=== PATIENT | female | born 1985 | race Caucasian/White ===

== ENCOUNTER 2025-04-28 15:13 | Emergency (ER) | payer SELFPAY ==
[2025-04-28 15:18] VITALS: BP 137/82; PULSE 83; RESP 18; TEMP 37; O2SAT 95
--- NOTE | 2025-04-28 15:45 | DI.RAD_ITS ---
Exam(s) XR CHEST 2V PA LATERAL EXAM: XR CHEST 2V PA LATERAL CLINICAL HISTORY: Productive cough TECHNIQUE: 2D digital imaging was performed. Two views. COMPARISON: No exams were available for comparison FINDINGS: HEART: Normal size. Aorta: Not dilated. PULMONARY VASCULATURE: Normal. MEDIASTINUM: Unremarkable. LUNGS: Clear. PLEURAL SPACE: No pleural effusion or pneumothorax. BONE:Unremarkable for age. SOFT TISSUES: Unremarkable. IMPRESSION: No acute abnormality. DATA REPOSITORY: RADIATION DOSE DELIVERED:
--- NOTE | 2025-04-28 15:58 | ED.GENADUL_ITS ---
Discharge Plan Disposition Patient Disposition: Home Condition: Stable Discharge Details Clinical Impression: Pneumonia, Asthma exacerbation Primary Care Provider: Lani,Local ED Provider: Edilia Velasquez Home Meds and New Rx's Prescriptions: New doxycycline hyclate 100 mg tablet 100 mg PO BID 10 Days Qty: 20 0RF Rx Instructions: Take 1 tablet by mouth twice daily for the next 10 days Continued prednisone 50 mg tablet 50 mg PO DAILY albuterol sulfate 90 mcg/actuation aerosol powdr breath activated 2 inh inhalation Q4H Discharge Instructions Instructions: Avoiding asthma triggers, Asthma, Adult ED, Pneumonia, Adult ED, How to Use a Metered Dose Inhaler ED Additional Instructions: Please continue to use the albuterol inhaler 1 or 2 puffs with spacer every 4-6 hours as needed. Take the antibiotic twice daily as prescribed with yogurt or probiotic. You were given 3 nebulizers here. Please continue take the prednisone as previously prescribed. Follow up with primary care provider in 3-5 days. Return to ED sooner if any worsening or concerns. Please take Tylenol or Ibuprofen with food every 4-6 hours as needed for pain and swelling. Discharge Data Discharge Date/Time-TO BE ENTERED AT DEPARTURE: 04/28/25 20:13 HPI General Mode of arrival: ambulatory . Date/Time Provider Initiated Documentation: 04/28/25 15:17 . Limitations to Documentation: no limitations . Information obtained by: patient and RN notes reviewed . HPI Narrative: 40-year-old female presents to the ER with approximately 2 weeks of worsening shortness of breath, productive cough, congestion. She was seen in an ER in [place] approximately 3 days ago and was given prednisone and a 7-day prednisone treatment of 50 mg a day. She is on her third day 50 mg of prednisone. She has also been using her hand held in an albuterol inhaler every 30 minutes. Related Data Home Medications ?Medication ?Instructions ?Recorded ?Confirmed albuterol sulfate 90 mcg/actuation 2 inh inhalation Q4 H 04/28/25 04/28/25 breath activated powder inhaler prednisone 50 mg tablet 50 mg PO DAILY 04/28/2504/10 doxycycline hyclate 100 mg tablet 100 mg PO BID URI 10 days #20 tabs 04/29/25 Previous Rx's ?Medication ?Instructions ?Recorded doxycycline hyclate 100 mg tablet 100 mg PO BID URI 10 days #20 tabs 04/29/25 Allergies Allergy/AdvReac Type Severity Reaction Status Date / Time No Known Allergies Allergy Unverified 04/28/25 15:20 General Stated Complaint: RespSymp YANA: 3 Review of Systems All systems reviewed & are unremarkable except as noted in HPI and below Constitutional Constitutional: Reports as per HPI, Denies body ache(s), Denies chills and Denies fever(s) Cardiovascular Cardiovascular: Denies chest pain and Reports dyspnea on exertion Respiratory Respiratory: Reports as per HPI, Reports chest congestion, Reports cough, Denies hemoptysis, Reports dyspnea on exertion and Reports wheezing Gastrointestinal Gastrointestinal: Denies abdominal pain, Denies nausea and Denies vomiting Allergic/Immunologic Allergic/Immunologic: Reports wheezing Exam Narrative Exam Narrative: Constitutional: Alert and oriented x3. Appears stated age. Normal body habitus. Head: Normocephalic, no trauma. Eyes: Pupils PERRL, Red reflex noted, EOM's intact. Eyelids symmetrical without lesions, discharge, or swelling. ENT: Bilateral TM's WNL, External ear normal to inspection, no mastoid TTP, swelling, or erythema, Nasal turbinates boggy, no nasal discharge. Normal dentition, Posterior pharynx WNL, no exudate. Chest: RRR, Normal S1, S2, distal pulses intact. Resp: Bilateral upper lobe expiratory wheezes, Rales and rhonchi noted to her legs bilaterally. No stridor. No increased work of breathing no tachypnea. Abdomen: Soft, non-distended, Normoactive bowel sounds all 4 quads. Musculoskeletal: Normal gait, Moves all 4 extremities without difficulty. Skin: Small scab noted to the bridge of her nose. Capillary refill less than 2 sec. Neurologic: Cranial nerves II-XII intact. Alert and oriented x 3. Motor: No deficits noted. Sensory: Intact bilaterally all 4 extremities. Hematologic/Lymphatic: No ecchymosis, no lymphadenopathy. Resp Effort & Inspection: normal respiratory effort and able to speak in complete sentences Auscultation: rales, rhonchi and wheezes Course Vital Signs Vital signs: Vital Signs Temperature 37.0 C 04/28/25 15:18 Pulse 83 04/28/25 15:18 Respiratory Rate 18 04/28/25 15:18 Blood Pressure 137/82 04/28/25 15:18 Pulse Oximetry 95 04/28/25 15:18 Temperature 37.0 C 04/28/25 15:18 Temperature Source Oral 04/28/25 15:18 Pulse 83 04/28/25 15:18 Respiratory Rate 18 04/28/25 15:18 Respiratory Effort Normal, Non-Labored, Short of Breath 04/28/25 15:23 Respiratory Depth Normal 04/28/25 15:23 Blood Pressure 137/82 04/28/25 15:18 Blood Pressure Position Sitting 04/28/25 15:18 Pulse Oximetry 95 04/28/25 15:18 Oxygen Delivery Method Room Air 04/28/25 15:18 Oxygen Flow Rate 0 04/28/25 15:18 Medical Decision Making 40-year-old female presents to the ER with approximately 2 weeks of worsening shortness of breath, productive cough, congestion. She was seen in an ER in [place] approximately 3 days ago and was given prednisone and a 7-day prednisone treatment of 50 mg a day. She is on her third day 50 mg of prednisone. She has also been using her hand held in an albuterol inhaler every 30 minutes. She is speaking in full sentences, she does have bilateral expiratory wheezes and rhonchi noted on auscultation. She denies any drugs or alcohol she does endorse vaping and smoking half a cigarette couple of days ago. Chest x-ray shows no acute abnormality. 1719: Will give a DuoNeb and reassess. Negative COVID flu RSV. 1742: Patient has received 1 DuoNeb on reevaluation lung sounds somewhat clear however there is still bilateral expiratory wheezes and rhonchi worse on the right. I do suspect pneumonia. Workup ordered including CBC CMP D-dimer and VBG I discussed plan of care with patient and she verbalized understanding and is in agreement with the plan. She states that she has recently traveled from [place] with the [employer] and everyone has the [employer] flu. She denies any possibility of however she is not on any control currently. 1852: On reassessment bilateral rhonchi, expiratory wheezes, will give additional DuoNeb and doxycycline. Patient had a total of 3 DuoNebs doxycycline given here tablets to go. Discussed home care, strict return instructions and follow-up care. Prescri ption for doxycycline twice daily x 10 days. Patient remained hemodynamically stable, given a spacer ANO x 4 upon discharge. This text was generated using [employer] system, please disregard any oddities of phrase or misspellings. Lab Data Lab results reviewed: Yes I reviewed the patient's lab results. Labs: Laboratory Tests Range/Units 04/28/25 04/28/25 16:08 17:45 WBC (4.4-10.8) 10^3/uL 9.14 RBC (3.93-5.22) 10^6/uL 3.78 L Hgb (11.2-15.7) g/dL 11.2 Hct (36.0-46.0) % 33.9 L MCV (80-95) fL 90 MCH (27.0-33.0) pg 29.6 MCHC (32.0-36.0) % 33.0 RDW (11.7-14.6) % 14.1 Plt Count (130-400) 10^3/uL 286 MPV (8.0-11.0) fL 9.5 Immature Gran % % 0.5 Neutrophils % % 68.5 Lymphocytes % % 23.2 Monocytes % % 7.4 Eosinophils % % 0.3 Basophils % % 0.1 Nucleated RBC % (0.0-0.3) % 0.0 Absolute Neutrophils (1.2-6.7) 10^3/uL 6.25 Absolute Lymphocytes (1.2-3.4) 10^3/uL 2.12 Absolute Monocytes (0.1-0.8) 10^3/uL 0.68 Absolute Eosinophils (0.0-0.7) 10^3/uL 0.03 Absolute Basophils (0.0-0.2) 10^3/uL 0.01 D-Dimer (<500) ng/mlFEU 120 VBG pH (7.31-7.41) 7.44 H VBG pCO2 (41-51) mmHg 41 VBG pO2 mmHg 55 VBG HCO3 (23-28) mmol/L 28 VBG Total CO2 (24-29) mmol/L 25 VBG O2 Saturation % 90 VBG Base Excess (-2-3) mmol/L 3 Sodium (136-145) mmol/L 140 Potassium (3.5-5.1) mmol/L 3.6 Chloride (98-107) mmol/L 103 Carbon Dioxide (21.0-32.0) mmol/L 28.3 Anion Gap (3-11) mmol/L 8.7 BUN (7-18) mg/dL 12 Creatinine (0.55-1.02) mg/dL 0.7 Est GFR (CKD-EPI 2020) (mL/min/1.73m2) 110.67 Glucose (74-106) mg/dL 93 Calcium (8.5-10.1) mg/dL 9.2 Total Bilirubin (0.2-1.0) mg/dL 0.2 AST (15-37) U/L 16 ALT (14-59) U/L 23 Alkaline Phosphatase (46-116) U/L 41 L Total Protein (6.4-8.2) g/dL 7.3 Albumin (3.4-5.0) g/dL 3.8 COVID-19 Source Nasopharynx SARS-CoV-2 (PCR) (Negative) Negative Influenza Type A (PCR) (Negative) Negative Influenza Type B (PCR) (Negative) Negative RSV (PCR) (Negative) Negative PFSH All Active Problems (Updated 04/28/25 @ 19:24 by Edilia Velasquez NP) Asthma exacerbation (Acute) Pneumonia (Acute) Social History Smoking/Tobacco Use Status: Current every day Tobacco Type: e-cigarettes Smoking risk assessment performed?: Yes Alcohol Intake: never Drug use: Never Substance use type: does not use Do you feel safe at home: Yes Do you feel safe in your relationship?: Yes
[2025-04-28 16:56] LABS: COVID-19 PCR Negative (Negative); RSV PCR Negative (Negative)
[2025-04-28 17:23] VITALS: O2SAT 95
[2025-04-28] MEDS: Albuterol/Ipratropium 3 ML UPD VIAL UPD ×3 (17:23→19:20)
[2025-04-28 17:55] VITALS: O2SAT 97
[2025-04-28 17:56] LABS: BE (Venous) 3 mmol/L (-2-3); HCO3 (Venous) 28 mmol/L (23-28); O2 Sat (Venous) 90 %; TCO2 (Venous) 25 mmol/L (24-29); pCO2 (Venous) 41 mmHg (41-51); pO2 (Venous) 55 mmHg
[2025-04-28 17:57] LABS: Abs Immature Grans 0.05 10^3/uL (0.0-0.06); HCT 33.9 % (36.0-46.0); HGB 11.2 g/dL (11.2-15.7); Immature Grans % 0.5 %; MCH 29.6 pg (27.0-33.0); MCHC 33.0 % (32.0-36.0); MCV 90 fL (80-95); MPV 9.5 fL (8.0-11.0); Platelet Count 286 10^3/uL (130-400); RBC 3.78 10^6/uL (3.93-5.22); RDW 14.1 % (11.7-14.6); RDW-SD 46.1 fL; WBC 9.14 10^3/uL (4.4-10.8)
[2025-04-28 18:18] LABS: ALT 23 U/L (14-59); AST 16 U/L (15-37); Albumin 3.8 g/dL (3.4-5.0); Alkaline Phosphatase 41 U/L (46-116); Anion Gap 8.7 mmol/L (3-11); BUN 12 mg/dL (7-18); Bilirubin, Total 0.2 mg/dL (0.2-1.0); CO2 28.3 mmol/L (21.0-32.0); Calcium 9.2 mg/dL (8.5-10.1); Chloride 103 mmol/L (98-107); Estimated GFR 110.67 (mL/min/1.73m2); Glucose 93 mg/dL (74-106); Potassium 3.6 mmol/L (3.5-5.1); Sodium 140 mmol/L (136-145); Total Protein 7.3 g/dL (6.4-8.2)
[2025-04-28 18:27] LABS: D-Dimer 120 ng/mlFEU (<500)
[2025-04-28 19:20] VITALS: PULSE 98; RESP 24
[2025-04-28] MEDS: Doxycycline Hyclate 100 MG, 2 CAPS/BTL PO (19:20)
[2025-04-28] MEDS: Doxycycline Hyclate 100 MG CAP PO (19:21)
== END 2025-04-28 20:13 | disposition home or self-care (01) ==
PROVIDERS: Emergency Provider Registered Nurse Emergency
DX: J18.9 Pneumonia, unspecified organism (principal); J45.901 Unspecified asthma with (acute) exacerbation
CPT/HCPCS: 99284 ×2; 36415; 80053; 82805; 87637; 71046; 85025; 85379; J7620